=== PATIENT | female | born 1985 | race Hispanic/Latino ===

== ENCOUNTER → 2018-12-16 | Day surgery (SDC) | payer OTHER ==
[~2018-12-16] MED LIST: FENTANYL CITRATE/PF 100MCG/2 ML INJ ONE; FLUTICASONE; MIDAZOLAM HCL 2 MG/2 ML VIAL ONE; PROPOFOL IV EMULSION 10 MG/ML 50 ML VIAL ONE; XYZAL5 MG PO
--- OUTSIDE RECORDS SUMMARY | 2018-12-16 10:22 | XMS REPORT | Continuity of Care Document ---
Author Author [facility] Interface Address Unknown Phone Unavailable Problems Problem Status Onset Date Classification Date Reported Comments Source Acute sinusitis 11/27/2017 Diagnosis 11/27/2017 [facility] On examination - fluid -middle ear 11/27/2017 Diagnosis 11/27/2017 [facility] Sinus headache 11/27/2017 Diagnosis 11/27/2017 [facility] Body mass index 30+ - obesity 11/27/2017 Diagnosis 11/27/2017 [facility] Acute pharyngitis 11/22/2017 Diagnosis 11/27/2017 [facility] Influenza-like symptoms 11/22/2017 Diagnosis 11/27/2017 [facility] Cough 11/22/2017 Diagnosis 11/27/2017 [facility] Allergic rhinitis 01/08/2017 Diagnosis 01/08/2017 [facility] Dysuria 12/31/2016 Diagnosis 01/08/2017 [facility] Influenza 12/20/2016 Diagnosis 01/08/2017 [facility] Pain in throat 12/20/2016 Diagnosis 01/08/2017 [facility] Eustachian tube disorder 12/20/2016 Diagnosis 01/08/2017 [facility] Urinary tract infectious disease 07/09/2016 Diagnosis 07/09/2016 [facility] Infectious Gastroenteritis Problem 11/22/2017 [facility] Dysfunction of Eustachian Tube Problem 11/22/2017 [facility] Otitis Media Problem 11/22/2017 [facility] Acute Maxillary Sinusitis Problem 11/22/2017 [facility] Upper Respiratory Infection Problem 11/22/2017 [facility] Gastroesophageal Reflux Disease Problem 11/22/2017 [facility] Gastroenteritis Problem 11/22/2017 [facility] Urinary Tract Infectious Disease Problem 11/22/2017 [facility] Expiratory Wheezing Problem 11/22/2017 [facility] Medications Medication Details Route Status Patient Instructions Ordering Provider Order Date Source levocetirizine dihydrochloride 5 MG Oral Tablet levocetirizine 5 mg tablet TAKE 1 TABLET EVERY DAY AT BEDTIME Active [facility] Medrol (Bryce) 4 mg tablets in a dose pack Medrol (Bryce) 4 mg tablets in a dose pack Take as directed on package Active [facility] benzonatate 200 MG Oral Capsule benzonatate 200 mg capsule Take 1 capsule 3 times a day by oral route for 10 days. Active [facility] fluticasone fluticasone Active [facility] Sulfamethoxazole 800 MG / Trimethoprim 160 MG Oral Tablet [Bactrim] Bactrim DS 800 mg-160 mg tablet Take 1 tablet every 12 hours by oral route for 5 days. Active [facility] Hyoscyamine Sulfate 0.125 MG Sublingual Tablet [Levsin] Levsin/SL 0.[address] 1 tablet every 4 hours by sublingual route as needed for abdominal cramps. Active [facility] Ondansetron 8 MG Disintegrating Oral Tablet [Zofran] Zofran ODT [address] 1 tablet every 8 hours by translingual route as needed for nausea. Active [facility] Oseltamivir 75 MG Oral Capsule [Tamiflu] Tamiflu 75 mg capsule Take 1 capsule twice a day by oral route for 5 days. Active [facility] Oseltamivir 75 MG Oral Capsule oseltamivir 75 mg capsule TAKE 1 CAPSULE TWICE DAILY FOR 5 DAYS Active [facility] Sulfamethoxazole 800 MG / Trimethoprim 160 MG Oral Tablet sulfamethoxazole 800 mg-trimethoprim 160 mg tablet TAKE 1 TABLET EVERY 12 HOURS FOR 5 DAYS Active [facility] Allergies, Adverse Reactions, Alerts Substance Category Reaction Severity Reaction type Status Date Reported Comments Source Immunizations Immunization Date Given Site Status Last Updated Comments Source Results Order Name Results Value Reference Range Date Interpretation Comments Source Influenza A negative 11/27/2017 [facility] Influenza B negative 11/27/2017 [facility] RESULT negative 11/27/2017 [facility] SWAB LOCATION Left and Right tonsillar pillars 11/27/2017 [facility] Bacteria identified in Unspecified specimen by Respiratory culture Bacteria identified in Unspecified specimen by Respiratory culture final report 11/25/2017 [facility] Bacteria identified in Unspecified specimen by Respiratory culture Bacteria identified in Unspecified specimen by Respiratory culture rrf 11/25/2017 [facility] Influenza A negative 11/22/2017 [facility] Influenza B negative 11/22/2017 [facility] RESULT negative 11/22/2017 [facility] SWAB LOCATION Left and Right tonsillar pillars 11/22/2017 [facility] Urinalysis macro (dipstick) panel - Urine COLOR : Yellow 01/08/2017 [facility] Urinalysis macro (dipstick) panel - Urine CLARITY : Clear 01/08/2017 [facility] Urinalysis macro (dipstick) panel - Urine LEUKOCYTES : Moderate 01/08/2017 [facility] Urinalysis macro (dipstick) panel - Urine NITRITES : Negative 01/08/2017 [facility] Urinalysis macro (dipstick) panel - Urine UROBILINOGEN : Normal 01/08/2017 [facility] Urinalysis macro (dipstick) panel - Urine PROTEIN : Trace 01/08/2017 [facility] Urinalysis macro (dipstick) panel - Urine pH : 5.0 01/08/2017 [facility] Urinalysis macro (dipstick) panel - Urine BLOOD : Large 01/08/2017 [facility] Urinalysis macro (dipstick) panel - Urine SPECIFIC GRAVITY : 1.005 01/08/2017 [facility] Urinalysis macro (dipstick) panel - Urine KETONES : Negative 01/08/2017 [facility] Urinalysis macro (dipstick) panel - Urine BILIRUBIN : Negative 01/08/2017 [facility] Urinalysis macro (dipstick) panel - Urine GLUCOSE Negative 01/08/2017 [facility] RESULT negative 01/08/2017 [facility] SWAB LOCATION Left and Right tonsillar pillars 01/08/2017 [facility] RESULT negative 01/08/2017 [facility] SWAB LOCATION Left and Right tonsillar pillars 01/08/2017 [facility] Influenza A positive 01/08/2017 [facility] Influenza B negative 01/08/2017 [facility] Urinalysis macro (dipstick) panel - Urine COLOR : Yellow 12/31/2016 [facility] Urinalysis macro (dipstick) panel - Urine CLARITY : Clear 12/31/2016 [facility] Urinalysis macro (dipstick) panel - Urine LEUKOCYTES : Moderate 12/31/2016 [facility] Urinalysis macro (dipstick) panel - Urine NITRITES : Negative 12/31/2016 [facility] Urinalysis macro (dipstick) panel - Urine UROBILINOGEN : Normal 12/31/2016 [facility] Urinalysis macro (dipstick) panel - Urine PROTEIN : Trace 12/31/2016 [facility] Urinalysis macro (dipstick) panel - Urine pH : 5.0 12/31/2016 [facility] Urinalysis macro (dipstick) panel - Urine BLOOD : Large 12/31/2016 [facility] Urinalysis macro (dipstick) panel - Urine SPECIFIC GRAVITY : 1.005 12/31/2016 [facility] Urinalysis macro (dipstick) panel - Urine KETONES : Negative 12/31/2016 [facility] Urinalysis macro (dipstick) panel - Urine BILIRUBIN : Negative 12/31/2016 [facility] Urinalysis macro (dipstick) panel - Urine GLUCOSE Negative 12/31/2016 [facility] RESULT negative 12/31/2016 [facility] SWAB LOCATION Left and Right tonsillar pillars 12/31/2016 [facility] Influenza A positive 12/31/2016 [facility] Influenza B negative 12/31/2016 [facility] RESULT negative 12/20/2016 [facility] SWAB LOCATION Left and Right tonsillar pillars 12/20/2016 [facility] Influenza A positive 12/20/2016 [facility] Influenza B negative 12/20/2016 [facility] Influenza A negative 09/26/2016 [facility] Influenza B negative 09/26/2016 [facility] Urinalysis macro (dipstick) panel - Urine COLOR : Yellow 07/09/2016 [facility] Urinalysis macro (dipstick) panel - Urine CLARITY : Cloudy 07/09/2016 [facility] Urinalysis macro (dipstick) panel - Urine LEUKOCYTES : Small 07/09/2016 [facility] Urinalysis macro (dipstick) panel - Urine NITRITES : Negative 07/09/2016 [facility] Urinalysis macro (dipstick) panel - Urine UROBILINOGEN : Normal 07/09/2016 [facility] Urinalysis macro (dipstick) panel - Urine PROTEIN : Trace 07/09/2016 [facility] Urinalysis macro (dipstick) panel - Urine pH : 6.0 07/09/2016 [facility] Urinalysis macro (dipstick) panel - Urine BLOOD : Large 07/09/2016 [facility] Urinalysis macro (dipstick) panel - Urine SPECIFIC GRAVITY : 1.030 07/09/2016 [facility] Urinalysis macro (dipstick) panel - Urine KETONES : Negative 07/09/2016 [facility] Urinalysis macro (dipstick) panel - Urine BILIRUBIN : Negative 07/09/2016 [facility] Urinalysis macro (dipstick) panel - Urine GLUCOSE Negative 07/09/2016 [facility] Influenza A negative 07/09/2016 [facility] Influenza B negative 07/09/2016 [facility] Vital Signs Vital Sign Value Date Comments Source Diastolic (mm Hg) 74 11/27/2017 [facility] Height 64 11/27/2017 [facility] Systolic (mm Hg) 112 11/27/2017 [facility] Weight 175 11/27/2017 [facility] Diastolic (mm Hg) 78 11/22/2017 [facility] Height 64 11/22/2017 [facility] Systolic (mm Hg) 114 11/22/2017 [facility] Weight 175 11/22/2017 [facility] Diastolic (mm Hg) 72 01/08/2017 [facility] Height 64 01/08/2017 [facility] Systolic (mm Hg) 120 01/08/2017 [facility] Weight 200 01/08/2017 [facility] Diastolic (mm Hg) 72 12/31/2016 [facility] Height 64 12/31/2016 [facility] Systolic (mm Hg) 118 12/31/2016 [facility] Weight 200 12/31/2016 [facility] Diastolic (mm Hg) 82 12/20/2016 [facility] Height 64 12/20/2016 [facility] Systolic (mm Hg) 130 12/20/2016 [facility] Weight 198 12/20/2016 [facility] Diastolic (mm Hg) 80 09/26/2016 [facility] Height 64 09/26/2016 [facility] Systolic (mm Hg) 135 09/26/2016 [facility] Weight 198 09/26/2016 [facility] Diastolic (mm Hg) 70 07/09/2016 [facility] Height 63 07/09/2016 [facility] Systolic (mm Hg) 120 07/09/2016 [facility] Weight 202 07/09/2016 [facility] Encounters Location Location Details Encounter Type Encounter Number Reason For Visit Attending Provider ADM Date DC Date Status Source [place] - [facility] - [id number] Camacho NP: [id number] [place] [address], Ph. [id number] Clarissa Camacho 07/09/2016 [facility] [place] [facility] - [id number] Mckenzie Loza, JEWEL SORTER: [address], [place] [address], Ph. [id number] Mckenzie Loza 09/26/2016 [facility] [place] [facility] - [id number] Luis Loza, JEWEL SORTER-C: [address], [place] [address], Ph. [phone] [id number] Luis Loza 12/20/2016 [facility] [place] [facility] - [id number] Lusi Loza, JEWEL SORTER-C: [address], [place] [address], Ph. [phone] [id number] Luis Loza 12/20/2016 [facility] [place] [facility] - [id number] Luis Loza, JEWEL SORTER-C: [address], [place] [address], Ph. [phone] [id number] Luis Loza 12/20/2016 [facility] [place] [facility] - [id number] Luis Loza, JEWEL SORTER-C: [address], [place] [address], Ph. [phone] [id number] Luis Loza 12/31/2016 [facility] [place] [facility] - [id number] Luis Loza, JEWEL SORTER-C: [address], [place] [address], Ph. [id number] Luis Loza 12/31/2016 [facility] [place] [facility] - [id number] Luis Loza, JEWEL SORTER-C: [address], [place] [address], Ph. [phone] [id number] Luis Loza 01/08/2017 [facility] [place] [facility] - [id number] [facility], JEWEL SORTER: [address], [place] [address], Ph. [id number] [facility] 11/22/2017 [facility] [place] [facility] - [id number] [facility], JEWEL SORTER: [address] [facility], [place] [address], Ph. [id number] [facility] 11/22/2017 [facility] [place] [facility] - [id number] Raya Wilson, OUTREACH ASSOCIATE: [address], [place] [address], Ph. [id number] Raya Wilson 11/27/2017 [facility] Procedures Procedure Code Date Perfomer Comments Source
--- OUTSIDE RECORDS SUMMARY | 2018-12-16 10:23 | XMS REPORT | Encounter Summary ---
Author Organization Unknown Address [address] [place] [address] Phone [phone] Reason for Visit Medical Complaint; nausea, vomiting, diarrhea, chills x 1 day Instructions 1. Gastroenteritis gastroenteritis: care instructions Levsin/SL 0.125 mg sublingual tablet Zofran ODT 8 mg disintegrating tablet rapid flu (A+B) Discussion Note: None recorded. Plan of Care Patient Instructions Drink plenty of fluidsand get lots of rest. Try eat bland food like banana, chicken noodle soup, rice, applesauce, toast. Take medication as prescribed for indicate of length of time. If vomitting/diarrhea continue and cannot hold down any food/beverages, please go to nearest emergency center for further care. If no improvement in 2-3 days or worsening of symptoms, follow up with primary care physican. Maytake pepto bismo, no immodium for now. Reminders Provider Appointments None recorded. Lab Rapid Flu (A+B) 09/26/2016 [facility] Referral None recorded. Procedures None recorded. Surgeries None recorded. Imaging None recorded. Medications Name Start Date Levsin/SL 0.[address] 1 tablet every 4 hours by sublingual route as needed for abdominal cramps. Zofran ODT [address] 1 tablet every 8 hours by translingual route as needed for nausea. Medications Administered None recorded. Vitals Height Weight BMI Blood Pressure 5 ft 4 in 198 lbs 34 135/80 Lab Results Date Name Result Description Value Range Status Rapid Flu (A+B) Influenza a negative Influenza B negative Allergies Name Reaction Severity Onset NKDA Problems Name Status Onset Date Source Infectious Gastroenteritis Active Encounter Dysfunction of Eustachian Tube Active Encounter Otitis Media Active Encounter Acute Maxillary Sinusitis Active Encounter Upper Respiratory Infection Active Encounter Gastroesophageal Reflux Disease Active Encounter Gastroenteritis Active Encounter Urinary Tract Infectious Disease Active Encounter Expiratory Wheezing Active Encounter Procedures None recorded. Vaccine List None recorded. Social History Smoking Status Never Smoker Past Encounters 09/26/2016 Gastroenteritis Mckenzie Loza, AVELINO: [address] [place] [address], Ph. History of Present Illness Kzcjyi-Rbiakaso-Styoszwp / Abdominal Pain Reported By: Patient HPI: Quality: improving, watery. Severity: mild. Duration: present for < 1 week. Onset/Timing: no nocturnal symptoms. Context: no recent camping, no recent picnic, no possible food sources, no recent travel, others with similar symptoms. Alleviating factors: OTC medication. Associated Symptoms: no excess gas, no rash, no joint pain, no weight loss, no heartburn, no blood in stool, no mucus in stool, no black or tarry stools, no weakness, no nutrient deficiency, no headache, no feeling of fullness/mass in throat, no muscle aches, no bitter taste in the mouth, no difficulty swallowing (dysphagia), abdominal pain, fever/chills, nausea, vomiting; diarrhea 3x Review of Systems Basic Reported By: Patient Constitutional: Constitutional: no fever Eyes: Eyes: no eye complaints Kqeu-Vctx-Xbznc-Throat: Ears: no ear complaints. Nose: no nose/sinus problems. Mouth/Throat: no sore throat, no bleeding gums, no mouth complaints, no teeth problems Cardiovascular: Cardiovascular: no chest pain, no shortness of breath, no known heart murmur Respiratory: Respiratory: no cough, no wheezing, no shortness of breath Gastrointestinal: Gastrointestinal: abdominal pain, vomiting, diarrhea Genitourinary: Genitourinary: no urinary complaints, no discharge Musculoskeletal: Musculoskeletal: no muscle aches, no muscle weakness, no arthralgias/joint pain, no back pain Skin: Skin: no abnormal / changing mole, no jaundice, no rashes Neurologic: Neurologic: no loss of consciousness, no weakness, no numbness, no seizures, no dizziness, no headaches Physical Exam Adult Basic, Adult Female Complete Constitutional: General Appearance: healthy-appearing, well-nourished, well-developed, overweight. Level of Distress: NAD. Ambulation: ambulating normally Psychiatric: Mental Status: active and alert. Orientation: to time, to place, to person Eyes: Lids and Conjunctivae: non-injected, no discharge, no pallor. Pupils: PERRLA. Corneas: grossly intact. EOM: EOMI. Lens: clear. Sclerae: non-icteric. Vision: acuity grossly intact Grc-Fwni-Fnegq-Throat: Ears: no lesions on external ear, no outer ear tenderness, EACs clear, TMs clear. Hearing: no hearing loss. Nose: no lesions on external nose, nares patent, no septal deviation, nasal passages clear, no sinus tenderness, no nasal discharge. Lips, Teeth, and Gums: no mouth or lip ulcers, no bleeding gums, normal dentition. Oropharynx: moist mucous membranes, no erythema, no exudates, tonsils not enlarged Neck: Neck: supple, trachea midline, no masses, FROM. Lymph Nodes: no cervical LAD, no supraclavicular LAD. Thyroid: no enlargement, non-tender, no nodules Lungs: Respiratory effort: no dyspnea, no tachypnea, no use of accessory muscles, no intercostal retractions. Auscultation: breath sounds normal Cardiovascular: Heart Auscultation: RRR, no murmurs. Neck vessels: no carotid bruits Abdomen: Bowel Sounds: normal. Inspection and Palpation: soft, non-distended, no guarding, no rebound tenderness, no masses, no CVA tenderness, LUQ tenderness. Liver: non-tender, no hepatomegaly. Spleen: non-tender, no splenomegaly. Hernia: none palpable
--- OUTSIDE RECORDS SUMMARY | 2018-12-16 10:23 | XMS REPORT | Encounter Summary ---
Author Organization Unknown Address [address] [place] [address] Phone [phone] Reason for Visit Medical Complaint Instructions 1. Acute sinusitis sinusitis: care instructions Medrol (Bryce) 4 mg tablets in a dose pack 2. On examination - fluid -middle ear middle ear fluid: care instructions 3. Sinus headache 4. Body mass index 30+ - obesity eating healthy foods: care instructions Discussion Note F/U with your PCP within 3-5 days if s/s continue or worsen. Handout that was given and reviewed and pt verbalized understanding. For worsenening symptoms or shortness/ chest pain develop F/U with ER [facility]. Plan of Care Patient Instructions Take charge of your health handout given and discussed. SE of medictions discussed and pt verbalized understanding. Reminders Provider Appointments None recorded. Lab None recorded. Referral None recorded. Procedures None recorded. Surgeries None recorded. Imaging None recorded. Medications Name Start Date levocetirizine 5 mg tablet TAKE 1 TABLET EVERY DAY AT BEDTIME Medrol (Bryce) 4 mg tablets in a dose pack Take as directed on package Medications Administered None recorded. Vitals Height Weight BMI Blood Pressure 5 ft 4 in 175 lbs 30 kg/m2 112/74 mm[Hg] Lab Results Date Name Specimen Result Interpretation Description Value Range Status Address 11/22/2017 Culture, Respiratory THROAT Upper Respiratory Culture final report Final [facility]: [id number] THROAT Result 1 rrf Final [facility]: [id number] Rapid Flu (A+B) Influenza a negative [facility]: [address] [place] [address] Influenza B negative [facility]: [address] [place] [address] Rapid Strep Group a, Throat Result negative [facility]: [address] [place] [address] Swab Location Left and Right tonsillar pillars [facility]: [address] [place] [address] Allergies Code Code System Name Reaction Severity Status Onset NKDA Problems No Known Problems Procedures None recorded. Vaccine List None recorded. Social History Smoking Status Never Smoker Past Encounters 11/27/2017 Acute Sinusitis; On Examination - Fluid -Middle Ear; Sinus Headache; Body Mass Index 30+ - Obesity Raya Wilson, SOFTWARE RELEASE MANAGER: [address] [place] [address], Ph. 11/22/2017 Acute Pharyngitis; Influenza-like Symptoms; Cough Michelle Tate, COMPUTER TECHNICAL SUPPORT SPECIALIST: [address] [facility], [place] [address], Ph. History of Present Illness Pgdaz-Fqzflvsqke-Rmukyuf Reported By: Patient HPI: Location: head/sinuses. Quality: nasal/sinus congestion. Duration: 4days. Severity: severe. Onset/Timing: gradual. Context: no sick contacts, no foreign travel, non-smoker, allergies. Modifying factors: OTC medication. Associated Symptoms: no sputum production, no shortness of breath, no wheezing, no change in number of pillows needed to sleep at night, no sweats, no significant weight gain, no significant weight loss, no morning cough, no vomiting, no diarrhea, no rash, no nausea, no fever, headache Review of Systems Basic Reported By: Patient Weke-Ofzk-Cvact-Throat: Ears: ear pain Neurologic: Neurologic: no dizziness Physical Exam Adult Basic, Adult Female Complete Reported By: Patient Constitutional: General Appearance: obese. Level of Distress: NAD. Ambulation: ambulating normally Psychiatric: Mental Status: active and alert. Orientation: to time, to place, to person Eyes: Lids and Conjunctivae: non-injected, no discharge, no pallor. Pupils: PERRLA. Sclerae: non-icteric Kkk-Srfv-Aluho-Throat: Ears: no lesions on external ear, no outer ear tenderness, EACs clear, TMs clear, middle ear fluid. Hearing: no hearing loss. Nose: no lesions on external nose, nares patent, no septal deviation, nasal passages clear, sinus tenderness, nasal discharge--rhinorrhea, post nasal drip. Lips, Teeth, and Gums: no mouth or lip ulcers. Oropharynx: moist mucous membranes, no erythema, no exudates, tonsils not enlarged Neck: Neck: supple. Lymph Nodes: anterior cervical LAD Lungs: Respiratory effort: no dyspnea, no tachypnea, no use of accessory muscles, no intercostal retractions. Auscultation: breath sounds normal Cardiovascular: Heart Auscultation: RRR, no murmurs Neurologic: Gait and Station: normal gait, normal station
--- OUTSIDE RECORDS SUMMARY | 2018-12-16 10:23 | XMS REPORT | Encounter Summary ---
Author Organization Unknown Address [address] [place] [address] Phone [phone] Reason for Visit Medical Complaint Instructions 1. Acute pharyngitis sore throat: care instructions culture, respiratory rapid strep group A, throat 2. Influenza-like symptoms rapid flu (A+B) 3. Cough cough: care instructions benzonatate 200 mg capsule Discussion Note: None recorded. Plan of Care Patient Instructions Sore Throat: Care Instructions Your Care Instructions Infection by bacteria or a virus causes most sore throats. Cigarette smoke, dry air, air pollution, allergies, and yelling can also cause a sore throat. Sore throats can be painful and annoying. Fortunately, most sore throats go away on their own. If you have a bacterial infection, your doctor may prescribe antibiotics. Follow-up care is a bishop part of your treatment and safety. Be sure to make and go to all appointments, and call your doctor if you are having problems. It's also a good idea to know your test results and keep a list of the medicines you take. How can you care for yourself at home? If your doctor prescribed antibiotics, take them as directed. Do not stop taking them just because you feel better. You need to take the full course of antibiotics. Gargle with warm salt water once an hour to help reduce swelling and relieve discomfort. Use 1 teaspoon of salt mixed in 1 cup of warm water. Take an ptpl-szt-zshagbq pain medicine, such as acetaminophen (Tylenol), ibuprofen (Advil, Motrin), or naproxen (Aleve). Read and follow all instructions on the label. Be careful when taking tdzr-jqg-ovidiwb cold or flu medicines and Tylenol at the same time. Many of these medicines have acetaminophen, which is Tylenol. Read the labels to make sure that you are not taking more than the recommended dose. Too much acetaminophen (Tylenol) can be harmful. Drink plenty of fluids. Fluids may help soothe an irritated throat. Hot fluids, such as tea or soup, may help decrease throat pain. Use hoie-xqe-dqsaomp throat lozenges to soothe pain. Regular cough drops or hard candy may also help. These should not be given to young children because of the risk of choking. Do not smoke or allow others to smoke around you. If you need help quitting, talk to your doctor about stop-smoking programs and medicines. These can increase your chances of quitting for good. Use a vaporizer or humidifier to add moisture to your bedroom. Follow the directions for cleaning the machine. When should you call for help? Call your doctor now or seek immediate medical care if: You have new or worse trouble swallowing. Your sore throat gets much worse on one side. Watch closely for changes in your health, and be sure to contact your doctor if you do not get better as expected. Where can you learn more? Go to www.[employer]Near[employer], log into the web portal, and enter U420 in the search box to learn more about Sore Throat: Care Instructions. Care instructions adapted under license by [facility]. This care instruction is for use with your licensed healthcare professional. If you have questions about a medical condition or this instruction, always ask your healthcare professional. [employer] disclaims any warranty or liability for your use of this information. Influenza (Flu): Care Instructions Your Care Instructions Influenza (flu) is an infection in the lungs and breathing passages. It is caused by the influenza virus. There are different strains, or types, of the flu virus from year to year. Unlike the common cold, the flu comes on suddenly and the symptoms, such as a cough, congestion, fever, chills, fatigue, aches, and pains, are more severe. These symptoms may last up to 10 days. Although the flu can make you feel very sick, it usually doesn't cause serious health problems. Home treatment is usually all you need for flu symptoms. But your doctor may prescribe antiviral medicine to prevent other health problems, such as pneumonia, from developing. Older people and those who have a long-term health condition, such as lung disease, are most at risk for having pneumonia or other health problems. Follow-up care is a bishop part of your treatment and safety. Be sure to make and go to all appointments, and call your doctor if you are having problems. Its also a good idea to know your test results and keep a list of the medicines you take. How can you care for yourself at home? Get plenty of rest. Drink plenty of fluids, enough so that your urine is light yellow or clear like water. If you have kidney, heart, or liver disease and have to limit fluids, talk with your doctor before you increase the amount of fluids you drink. Take an dbqm-lqe-rzozmag pain medicine if needed, such as acetaminophen (Tylenol), ibuprofen (Advil, Motrin), or naproxen (Aleve), to relieve fever, headache, and muscle aches. Read and follow all instructions on the label. No one younger than 20 should take aspirin. It has been linked to [place] syndrome, a serious illness. Do not smoke. Smoking can make the flu worse. If you need help quitting, talk to your doctor about stop-smoking programs and medicines. These can increase your chances of quitting for good. Breathe moist air from a hot shower or from a sink filled with hot water to help clear a stuffy nose. Before you use cough and cold medicines, check the label. These medicines may not be safe for young children or for people with certain health problems. If the skin around your nose and lips becomes sore, put some petroleum jelly on the area. To ease coughing: Drink fluids to soothe a scratchy throat. Suck on cough drops or plain hard candy. Take an yvly-irw-balegtz cough medicine that contains dextromethorphan to help you get some sleep. Read and follow all instructions on the label. Raise your head at night with an extra pillow. This may help you rest if coughing keeps you awake. Take any prescribed medicine exactly as directed. Call your doctor if you think you are having a problem with your medicine. To avoid spreading the flu Wash your hands regularly, and keep your hands away from your face. Stay home from school, work, and other public places until you are feeling better and your fever has been gone for at least 24 hours. The fever needs to have gone away on its own without the help of medicine. Ask people living with you to talk to their doctors about preventing the flu. They may get antiviral medicine to keep from getting the flu from you. To prevent the flu in the future, get a flu vaccine every fall. Encourage people living with you to get the vaccine. Cover your mouth when you cough or sneeze. When should you call for help? Call 911 anytime you think you may need emergency care. For example, call if: You have severe trouble breathing. Call your doctor now or seek immediate medical care if: You have new or worse trouble breathing. You seem to be getting much sicker. You feel very sleepy or confused. You have a new or higher fever. You get a new rash. Watch closely for changes in your health, and be sure to contact your doctor if: You begin to get better and then get worse. You are not getting better after 1 week. Where can you learn more? Go to www.[employer], log into the web portal, and enter L652 in the search box to learn more about Influenza (Flu): Care Instructions. Care instructions adapted under license by [facility]. This care instruction is for use with your licensed healthcare professional. If you have questions about a medical condition or this instruction, always ask your healthcare professional. [employer] disclaims any warranty or liability for your use of this information. Cough: Care Instructions Your Care Instructions A cough is your body's response to something that bothers your throat or airways. Many things can cause a cough. You might cough because of a cold or the flu, bronchitis, or asthma. Smoking, postnasal drip, allergies, and stomach acid that backs up into your throat also can cause coughs. A cough is a symptom, not a disease. Most coughs stop when the cause, such as a cold, goes away. You can take a few steps at home to cough less and feel better. Follow-up care is a bishop part of your treatment and safety. Be sure to make and go to all appointments, and call your doctor if you are having problems. It's also a good idea to know your test results and keep a list of the medicines you take. How can you care for yourself at home? Drink lots of water and other fluids. This helps thin the mucus and soothes a dry or sore throat. Honey or lemon juice in hot water or tea may ease a dry cough. Take cough medicine as directed by your doctor. Prop up your head on pillows to help you breathe and ease a dry cough. Try cough drops to soothe a dry or sore throat. Cough drops don't stop a cough. Medicine-flavored cough drops are no better than candy-flavored drops or hard candy. Do not smoke. Avoid secondhand smoke. If you need help quitting, talk to your doctor about stop-smoking programs and medicines. These can increase your chances of quitting for good. When should you call for help? Call 911 anytime you think you may need emergency care. For example, call if: You have severe trouble breathing. Call your doctor now or seek immediate medical care if: You cough up blood. You have new or worse trouble breathing. You have a new or higher fever. You have a new rash. Watch closely for changes in your health, and be sure to contact your doctor if: You cough more deeply or more often, especially if you notice more mucus or a change in the color of your mucus. You have new symptoms, such as a sore throat, an earache, or sinus pain. You do not get better as expected. Where can you learn more? Go to www.[employer], log into the web portal, and enter D279 in the search box to learn more about Cough: Care Instructions. Care instructions adapted under license by [facility]. This care instruction is for use with your licensed healthcare professional. If you have questions about a medical condition or this instruction, always ask your healthcare professional. [employer] disclaims any warranty or liability for your use of this information. Reminders Provider Appointments None recorded. Lab Culture, Respiratory 11/22/2017 [facility] Rapid Strep Group a, Throat 11/22/2017 [facility] Rapid Flu (A+B) 11/22/2017 [facility] Referral None recorded. Procedures None recorded. Surgeries None recorded. Imaging None recorded. Medications Name Start Date benzonatate 200 mg capsule Take 1 capsule 3 times a day by oral route for 10 days. fluticasone levocetirizine 5 mg tablet TAKE 1 TABLET EVERY DAY AT BEDTIME Medications Administered None recorded. Vitals Height Weight BMI Blood Pressure 5 ft 4 in 175 lbs 30 kg/m2 114/78 mm[Hg] Lab Results Date Name Specimen Result Interpretation Description Value Range Status Address Rapid Flu (A+B) Influenza a negative [facility]: [address] [place] [address] Influenza B negative [facility]: [address] [place] [address] Rapid Strep Group a, Throat Result negative [facility]: [facility] [place] Swab Location Left and Right tonsillar pillars [facility]: [address] [place] [address] Allergies Code Code System Name Reaction Severity Status Onset NKDA Problems Name Status Onset Date [...] History Smoking Status Never Smoker Past Encounters 11/22/2017 Acute Pharyngitis; Influenza-like Symptoms; Cough Michelle Tate, [employer]PERVISOR: [address] [place] [address], Ph. History of Present Illness Throat-Oral Complaint Reported By: Patient HPI: Location: throat. Quality: sore throat, congested, dry or hacking cough. Severity: moderate. Duration: 5 days. Onset/Timing: sudden. Context: no sick contacts, no foreign travel, non-smoker. Modifying factors: OTC medication. Associated Symptoms: no sputum production, no shortness of breath, no wheezing, no change in number of pillows needed to sleep at night, no sweats, no significant weight gain, no significant weight loss, no morning cough, no vomiting, no diarrhea, no rash, no nausea, sore throat Review of Systems Basic Reported By: Patient Constitutional: Constitutional: no fever Eyes: Eyes: no eye complaints Ikqo-Ovja-Xruhc-Throat: Ears: no ear complaints. Nose: nose/sinus problems. Mouth/Throat: no bleeding gums, no mouth complaints, no teeth problems, sore throat Cardiovascular: Cardiovascular: no chest pain, no shortness of breath, no known heart murmur Respiratory: Respiratory: no wheezing, no shortness of breath, cough Gastrointestinal: Gastrointestinal: no abdominal pain, no vomiting / diarrhea Genitourinary: Genitourinary: no urinary complaints, no discharge Musculoskeletal: Musculoskeletal: no muscle aches, no muscle weakness, no arthralgias/joint pain, no back pain Skin: Skin: no abnormal / changing mole, no jaundice, no rashes Neurologic: Neurologic: no loss of consciousness, no weakness, no numbness, no seizures, no dizziness, no headaches Physical Exam Adult Basic, Adult Female Complete Reported By: Patient Constitutional: General Appearance: healthy-appearing, well-nourished, well-developed. Level of Distress: mild distress. Ambulation: ambulating normally Psychiatric: Mental Status: active and alert. Orientation: to time, to place, to person Inq-Qjgz-Lekqw-Throat: Ears: no lesions on external ear, no outer ear tenderness, EACs clear. Hearing: no hearing loss. Nose: no lesions on external nose, no septal deviation, nasal passages clear, no sinus tenderness, nares non-patent, nasal discharge. Lips, Teeth, and Gums: no mouth or lip ulcers, no bleeding gums, normal dentition. Oropharynx: moist mucous membranes, no exudates, tonsils not enlarged, erythema Neck: Neck: supple, trachea midline. Lymph Nodes: no cervical LAD, no supraclavicular LAD Lungs: Respiratory effort: no dyspnea, no tachypnea, no use of accessory muscles, no intercostal retractions. Percussion: ; intermittent cough. Auscultation: breath sounds normal Cardiovascular: Heart Auscultation: RRR, no murmurs Neurologic: Gait and Station: normal gait, normal station
--- OUTSIDE RECORDS SUMMARY | 2018-12-16 10:23 | XMS REPORT | Encounter Summary ---
Author Organization Unknown Address [address] [place] [address] Phone [phone] Reason for Visit Medical Complaint; body aches, diarrhea, headache, chills started yesterday Instructions 1. Urinary tract infectious disease urinalysis, dipstick rapid flu (A+B) Bactrim DS 800 mg-160 mg tablet culture, urine Discussion Note Increase fluid intake. Wipe from front to back. No sexual intercourse whileon treatment. Sent urine for culture. Follow up with [facility] or PCP if symptoms persit or get worse Patient educational handouts: No information available. Plan of Care Reminders Provider Appointments None recorded. Lab Urinalysis, Dipstick 07/09/2016 [facility] Rapid Flu (A+B) 07/09/2016 [facility] Culture, Urine 07/09/2016 [facility] Referral None recorded. Procedures None recorded. Surgeries None recorded. Imaging None recorded. Medications Name Start Date Bactrim DS 800 mg-160 mg tablet Take 1 tablet every 12 hours by oral route for 5 days. Medications Administered None recorded. Vitals Height Weight BMI Blood Pressure 5 ft 3 in 202 lbs 35.8 120/70 Lab Results Date Name Result Description Value Range Status Urinalysis, Dipstick Color : Yellow Clarity : Cloudy Leukocytes : Small Nitrites : Negative Urobilinogen : Normal Protein : Trace Ph : 6.0 Blood : Large Specific [place] : 1.030 Ketones : Negative Bilirubin : Negative Glucose Negative Rapid Flu (A+B) Influenza a negative Influenza B negative Allergies Name Reaction Severity Onset NKDA Problems Name Status Onset Date Source Infectious Gastroenteritis Active Encounter Dysfunction of Eustachian Tube Active Encounter Otitis Media Active Encounter Acute Maxillary Sinusitis Active Encounter Upper Respiratory Infection Active Encounter Gastroesophageal Reflux Disease Active Encounter Urinary Tract Infectious Disease Active Encounter Expiratory Wheezing Active Encounter Procedures None recorded. Vaccine List None recorded. Social History Smoking Status Never Smoker Past Encounters 07/09/2016 Urinary Tract Infectious Disease Clarissa Camacho [employer]: [address] [place] [address], Ph. History of Present Illness [id number]-Jtd Reported By: Patient HPI: Quality: symptoms worse in the evening. Duration: constant. Severity: subjective temperature. Context: ill contacts. Associated Symptoms: generalized pain, tired (fatigue). Modifying Factors OTC medication Review of Systems Basic Reported By: Patient Eyes: Eyes: no eye complaints Goey-Euqq-Rfqdd-Throat: Ears: no ear complaints. Nose: no nose/sinus problems. Mouth/Throat: no sore throat, no bleeding gums, no mouth complaints, no teeth problems Respiratory: Respiratory: no cough, no wheezing, no shortness of breath Gastrointestinal: Gastrointestinal: no vomiting / diarrhea, abdominal pain Musculoskeletal: Musculoskeletal: muscle aches Neurologic: Neurologic: headache Physical Exam Adult Basic, Adult Female Complete Constitutional: General Appearance: healthy-appearing, well-nourished, well-developed. Level of Distress: mild distress. Ambulation: ambulating normally Psychiatric: Mental Status: active and alert. Orientation: to time, to place, to person Eyes: Lids and Conjunctivae: non-injected, no discharge, no pallor. Pupils: PERRLA. Corneas: grossly intact, fluorescein stain--normal. EOM: EOMI. Lens: clear. Sclerae: non-icteric. Vision: acuity grossly intact Diy-Bslo-Yqwws-Throat: Ears: no lesions on external ear, no [...] Lymph Nodes: no cervical LAD, no supraclavicular LAD, no axillary LAD, no inguinal LAD. Thyroid: no enlargement, non-tender, no nodules Lungs: Respiratory effort: no dyspnea, no tachypnea, no use of accessory muscles, no intercostal retractions. Auscultation: breath sounds normal Cardiovascular: Heart Auscultation: RRR, no murmurs. Neck vessels: no carotid bruits Musculoskeletal:: Motor Strength and Tone: normal motor strength, normal tone. Joints, Bones, and Muscles: normal movement of all extremities, no bony abnormalities, no contractures, no malalignment, no tenderness Neurologic: Gait and Station: normal gait, normal station. Cranial Nerves: grossly intact. Sensation: grossly intact. Reflexes: DTRs 2+ bilaterally throughout Abdomen: Inspection and Palpation: suprapubic tenderness, CVA tenderness
--- OUTSIDE RECORDS SUMMARY | 2018-12-16 10:23 | XMS REPORT | Encounter Summary ---
Author Organization Unknown Address [address] [place] [address] Phone [phone] Reason for Visit Medical Complaint Instructions 1. Dysuria painful urination (dysuria): care instructions urinalysis, dipstick Bactrim DS 800 mg-160 mg tablet Discussion Note: None recorded. Plan of Care Patient Instructions take antibiotics as prescribed. increase fluids. otc tylenol or ibuprofen prn for pain. follow up pcp Reminders Provider Appointments None recorded. Lab Urinalysis, Dipstick 12/31/2016 [facility] Referral None recorded. Procedures None recorded. Surgeries None recorded. Imaging None recorded. Medications Name Start Date Bactrim DS 800 mg-160 mg tablet Take 1 tablet every 12 hours by oral route for 5 days. oseltamivir 75 mg capsule TAKE 1 CAPSULE TWICE DAILY FOR 5 DAYS Medications Administered None recorded. Vitals Height Weight BMI Blood Pressure 5 ft 4 in 200 lbs 34.3 118/72 Lab Results Date Name Specimen Result Interpretation Description Value Range Status Address Urinalysis, Dipstick Color : Yellow [facility]: [address] [place] [address] Clarity : Clear [facility]: [address] [place] [address] Leukocytes : Moderate [facility]: [address] [place] [address] Nitrites : Negative [facility]: [address] [place] [address] Urobilinogen : Normal [facility]: [address] [place] [address] Protein : Trace [facility]: [address] [place] [address] Ph : 5.0 [facility]: [address] [place] [address] Blood : Large [facility]: [address] [place] [address] Specific [place] : 1.005 [facility]: [address] [place] [address] Ketones : Negative [facility]: [address] [place] [address] Bilirubin : Negative [facility]: [address] [place] [address] Glucose Negative [facility]: [address] [place] [address] Rapid Strep Group a, Throat Result negative [facility]: [address] [place] [address] Swab Location Left and Right tonsillar pillars [facility]: [address] [place] [address] Rapid Flu (A+B) Influenza a positive [facility]: [facility] Influenza B negative [facility]: [facility] Allergies Code Code System Name Reaction Severity Onset NKDA Problems Name [...] History Smoking Status Never Smoker Past Encounters 12/31/2016 Dysuria AVELINO Rasmussen-C: [address] [place] [address], Ph. 12/20/2016 Influenza; Pain in Throat; Eustachian Tube Disorder FABRICE RasmussenC: [address] [place] [address], Ph. History of Present Illness [id number]-Zabnzne Reported By: Patient HPI: Location: urethra. Quality: pressure, burning. Severity: mild. Duration: constant. Onset/Timing: gradual. Context: no known exposure to STD, no prior history of STDs, history of urine cultures/antibiotic treatment, wipes anterior to posterior. Modifying factors OTC medication. Associated Symptoms: no fever/chills, no flank pain, no jaundice, no blood in the urine, no vaginal discharge, no blisters on genitals, no rash on genitals, no muscle aches, no headache, pain during urination, burning sensation during urination, urgency, urinary frequency Review of Systems:ROS as noted in the HPI Review of Systems Basic Reported By: Patient Physical Exam Adult Basic, Adult Female Complete Reported By: Patient Constitutional: General Appearance: healthy-appearing, well-nourished, well-developed. Level of Distress: NAD. Ambulation: ambulating normally Psychiatric: Mental Status: active and alert Lungs: Respiratory effort: no dyspnea, no tachypnea, no use of accessory muscles, no intercostal retractions. Auscultation: breath sounds normal Cardiovascular: Heart Auscultation: RRR, no murmurs Abdomen: Inspection and Palpation: soft, non-distended, no tenderness, no guarding, no rebound tenderness, no masses, no CVA tenderness
--- OUTSIDE RECORDS SUMMARY | 2018-12-16 10:23 | XMS REPORT | Encounter Summary ---
Author Organization Unknown Address [address] [place] [id number] Phone [phone] Reason for Visit Medical Complaint Instructions 1. Allergic rhinitis levocetirizine 5 mg tablet 2. Pain in throat rapid strep group A, throat Discussion Note: None recorded. Patient educational handouts: No information available. Plan of Care Patient Instructions otc flonase as needed. follow up pcp Reminders Provider Appointments None recorded. Lab Rapid Strep Group a, Throat 01/08/2017 [facility] Referral None recorded. Procedures None recorded. Surgeries None recorded. Imaging None recorded. Medications Name Start Date levocetirizine 5 mg tablet Take 1 tablet every day by oral route at bedtime. oseltamivir 75 mg capsule TAKE 1 CAPSULE TWICE DAILY FOR 5 DAYS sulfamethoxazole 800 mg-trimethoprim 160 mg tablet TAKE 1 TABLET EVERY 12 HOURS FOR 5 DAYS Medications Administered None recorded. Vitals Height Weight BMI Blood Pressure 5 ft 4 in 200 lbs 34.3 120/72 Lab Results Date Name Specimen Result Interpretation Description Value Range Status Address Rapid Strep Group a, Throat Result negative [facility]: [address] [place] [address] Swab Location Left and Right tonsillar pillars [facility]: [address] [place] [address] Urinalysis, Dipstick Color : Yellow [facility]: [address] [place] [address] Clarity : Clear [facility]: [address] [place] [address] Leukocytes : Moderate [facility]: [address] [place] [address] Nitrites : Negative [facility]: [address] [place] [address] Urobilinogen : Normal [facility]: [address] [place] [address] Protein : Trace [facility]: [address] [place] [address] Ph : 5.0 [facility]: [address] [place] [address] Blood : Large [facility]: [address] [place] [address] Specific [place] : 1.005 [facility]: [address] [place] [address] Ketones : Negative [facility]: [address] [place] [address] Bilirubin : Negative [facility]: [address] [place] [address] Glucose Negative [facility]: [facility] Rapid Strep Group a, Throat Result negative [facility]: [address] [facility] Swab Location Left and Right tonsillar pillars [facility]: [address] [facility] Rapid Flu (A+B) Influenza a positive [facility]: [address] [facility] Influenza B negative [facility]: [address] [facility] Allergies Code Code System Name Reaction Severity [...] History Smoking Status Never Smoker Past Encounters 01/08/2017 Allergic Rhinitis; Pain in Throat DAJA Rasmussen: [address] [place] [address], Ph. 12/31/2016 Dysuria DAJA Rasmussen: [address] [place] [address], Ph. 12/20/2016 Influenza; Pain in Throat; Eustachian Tube Disorder DAJA Rasmussen: [address] [place] [address], Ph. History of Present Illness Dasoi-Dbfauherss-Rwvfwax Reported By: Patient HPI: Location: head/sinuses, throat. Quality: sore throat, nasal/sinus congestion, dry cough. Duration: 2days. Severity: mild. Onset/Timing: gradual. Context: no sick contacts, no foreign travel, non-smoker, allergies. Modifying factors: OTC medication. Associated Symptoms: no sputum production, no shortness of breath, no wheezing, no change in number of pillows needed to sleep at night, no sweats, no significant weight gain, no significant weight loss, no morning cough, no vomiting, no diarrhea, no rash, no nausea, no fever, no muscle aches, no headache, sore throat Review of Systems:ROS as noted in the HPI Review of Systems Basic Reported By: Patient Physical Exam Adult Basic, Adult Female Complete Reported By: Patient Constitutional: General Appearance: obese. Level of Distress: NAD. Ambulation: ambulating normally Psychiatric: Mental Status: active and alert Eyes: Lids and Conjunctivae: non-injected, no discharge Uln-Yups-Iaunb-Throat: Ears: no lesions on external ear, no outer ear tenderness, EACs clear, TMs clear. Hearing: no hearing loss. Nose: no lesions on external nose, post nasal drip; congestion. Lips, Teeth, and Gums: no mouth or lip ulcers. Oropharynx: moist mucous membranes, no erythema, no exudates, tonsils not enlarged Neck: Neck: trachea midline. Lymph Nodes: no cervical LAD Lungs: Respiratory effort: no dyspnea, no tachypnea, no use of accessory muscles, no intercostal retractions. Auscultation: breath sounds normal Cardiovascular: Heart Auscultation: RRR, no murmurs
--- OUTSIDE RECORDS SUMMARY | 2018-12-16 10:23 | XMS REPORT | Encounter Summary ---
Author Organization Unknown Address [address] [place] [address] Phone [phone] Reason for Visit Medical Complaint Instructions 1. Influenza influenza (flu): care instructions rapid flu (A+B) Tamiflu 75 mg capsule 2. Pain in throat rapid strep group A, throat 3. Eustachian tube disorder Discussion Note: None recorded. Plan of Care Patient Instructions otc tylenol and ibuprofen for fever and body aches. increase fluids. follow up pcp Reminders Provider Appointments None recorded. Lab Rapid Flu (A+B) 12/20/2016 [facility] Rapid Strep Group a, Throat 12/20/2016 [facility] Referral None recorded. Procedures None recorded. Surgeries None recorded. Imaging None recorded. Medications Name Start Date Tamiflu 75 mg capsule Take 1 capsule twice a day by oral route for 5 days. Medications Administered None recorded. Vitals Height Weight BMI Blood Pressure 5 ft 4 in 198 lbs 34 130/82 Lab Results Date Name Result Description Value Range Status Rapid Strep Group a, Throat Result negative Swab Location Left and Right tonsillar pillars Rapid Flu (A+B) Influenza a positive Influenza B negative Allergies Name Reaction Severity [...] History Smoking Status Never Smoker Past Encounters 12/20/2016 Influenza; Pain in Throat; Eustachian Tube Disorder Luis Loza, [facility]: [address] [place] [address], Ph. History of Present Illness [id number]-Wlweosu Reported By: Patient HPI: Location: head/sinuses, throat. Quality: sore throat, nasal/sinus congestion, dry cough. Duration: 2days. Severity: moderate. Onset/Timing: gradual. Context: no foreign travel, non-smoker, sick contact. Modifying factors: OTC medication. Associated Symptoms: no sputum production, no shortness of breath, no wheezing, no change in number of pillows needed to sleep at night, no sweats, no significant weight gain, no significant weight loss, no morning cough, no vomiting, no diarrhea, no rash, no nausea, no fever, no headache, fatigue, sore throat, fever, muscle aches Review of Systems:ROS as noted in the HPI Review of Systems Basic Reported By: Patient Physical Exam Adult Basic, Adult Female Complete Reported By: Patient Constitutional: General Appearance: healthy-appearing, well-nourished, well-developed. Level of Distress: NAD. Ambulation: ambulating normally Psychiatric: Mental Status: active and alert Eyes: Lids and Conjunctivae: non-injected, no discharge Myu-Xjnx-Ktefs-Throat: Ears: no lesions on external ear, no outer ear tenderness, EACs clear, TMs clear. Hearing: no hearing loss. Nose: no lesions on external nose, nasal discharge--rhinorrhea, post nasal drip; congestion. Lips, Teeth, and [...]
[2018-12-16 13:15] VITALS: BP 113/61
--- NOTE | 2018-12-16 19:41 | Operative Report ---
DATE OF PROCEDURE: 12/16/2018 SURGEON: Moise Moreland MD PROCEDURE: Esophagogastroduodenoscopy with biopsies. INDICATION FOR PROCEDURE: Upper abdominal pain. Early satiety. Bloating. MEDICATIONS: The patient was done under MAC, please see anesthesiologist's note. PROCEDURE IN DETAIL: With the patient in left lateral decubitus position, flexible fiberoptic Olympus gastroscope was introduced into the esophagus under direct visualization without any difficulty. There was some patchy erythema noted in distal esophagus. A minute tongue of velvety red mucosa was noted to extend proximally from the GE junction and that was biopsied to rule out Gresham's. The scope was then advanced with ease into the stomach. Mucosa overlying the antrum and the body revealed some patchy erythema, low grade to moderate edema and biopsies were obtained and sent to stain for H pylori. The pylorus was of normal contour and shape. It was intubated with ease and the scope was advanced all the way to the second portion of the duodenum. Biopsies were obtained from the proximal second portion and the duodenal bulb to rule out sprue. The scope was then withdrawn back into the stomach and retroflexed. Mucosa overlying the fundus and cardia appeared to be within normal limits. The scope was then straightened out. The stomach was decompressed. The scope was subsequently withdrawn. The patient tolerated procedure well. IMPRESSION: 1. Distal esophagitis, mild. 2. Rule out Gresham esophagus. 3. Gastritis, biopsied. Biopsies sent to stain for Helicobacter pylori. 4. Rule out sprue. PLAN: Follow up histology. Initiate Protonix 40 mg one p.o. q.a.m. a.c. Moise Moreland MD [facility] [place] /[id number]
== END | disposition home or self-care (01) ==
LOC: OR 10:01
PROVIDERS: ATTEND Internal Medicine Gastroenterology
DX: K20.9 Esophagitis, unspecified (principal); K29.70 Gastritis, unspecified, without bleeding; R10.10 Upper abdominal pain, unspecified; R03.0 Elevated blood-pressure reading, without diagnosis of hypertension; Z68.32 Body mass index [BMI] 32.0-32.9, adult
CPT/HCPCS: 43239; 81025; J2250; J2704